=== PATIENT | male | born 1985 | race Caucasian/White ===

== ENCOUNTER 2017-05-15 12:45 | Emergency (ER) | payer MEDICAID ==
[~2017-05-15] VITALS: Ht 188 cm; Wt 118.0 kg
[2017-05-15 12:52] VITALS: BP 81/50; PULSE 84; RESP 13; TEMP 98.4; O2SAT 95
[2017-05-15 12:57] VITALS: BP 152/91; PULSE 72; RESP 18; O2SAT 98
[2017-05-15] MEDS ORDERED: SODIUM CHLORIDE 0.9% FLUSH 10 ML FLUSH IVF PRN (13:00)
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
[2017-05-15 13:04] VITALS: BP 144/98; PULSE 81; RESP 18; O2SAT 96
[2017-05-15] MEDS ORDERED: IOHEXOL 350 MG/ML 10 ML VIAL (for RAD DIAG) IV ONE (14:02)
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
== END 2017-05-15 14:56 | disposition home or self-care (01) ==
LOC: NEPD 12:45
DX: S20.211A Contusion of right front wall of thorax, initial encounter (principal); S00.11XA Contusion of right eyelid and periocular area, initial encounter; J45.909 Unspecified asthma, uncomplicated; V28.4XXA Motorcycle driver injured in noncollision transport accident in traffic accident, initial encounter
CPT/HCPCS: 71260; 74177; 99285; Q9967

== ENCOUNTER 2017-06-06 00:20 | Emergency (ER) | payer MEDICAID ==
[~2017-06-06] VITALS: Ht 188 cm; Wt 119.4 kg
[2017-06-06 00:26] VITALS: BP 153/97; PULSE 75; RESP 18; TEMP 97.8; O2SAT 99
[2017-06-06 00:36] VITALS: BP 153/97; PULSE 75; RESP 18; TEMP 97.8; O2SAT 99
[2017-06-06] MEDS ORDERED: AMOX875T PO (00:56)
[2017-06-06] MEDS ORDERED: IBUP800T23 PO (00:56)
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
[2017-06-06] MEDS ORDERED: LIDOCAINE HCL 1% 50 ML VIAL IM ONE (01:00)
[2017-06-06] MEDS ORDERED: KETOROLAC TROMETHAMINE 60 MG/2 ML (IM) VIAL IM ONE (01:00)
[2017-06-06 01:12] VITALS: BP 132/95
== END 2017-06-06 01:18 | disposition home or self-care (01) ==
LOC: PHED 00:20
DX: K04.7 Periapical abscess without sinus (principal)
CPT/HCPCS: 96372; 99284; J0696; J1885

== ENCOUNTER 2017-06-18 00:23 | Emergency (ER) | payer MEDICAID ==
[~2017-06-18 00:23] MED LIST: AMOX875T PO; IBUP800T23 PO
[2017-06-18 00:24] VITALS: BP 147/80; PULSE 124; RESP 18; TEMP 97.3; O2SAT 96
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
[2017-06-18] MEDS ORDERED: NORC5TAB PO (01:16)
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
== END 2017-06-18 01:54 | disposition home or self-care (01) ==
LOC: NEPC 00:23
DX: S92.355A Nondisplaced fracture of fifth metatarsal bone, left foot, initial encounter for closed fracture (principal); S93.402A Sprain of unspecified ligament of left ankle, initial encounter; V28.4XXA Motorcycle driver injured in noncollision transport accident in traffic accident, initial encounter; Y92.410 Unspecified street and highway as the place of occurrence of the external cause
CPT/HCPCS: 29515; 73610; 73630; 99283; E0113

== ENCOUNTER 2017-06-29 17:53 | Emergency (ER) | payer MEDICAID ==
[~2017-06-29] VITALS: Ht 188 cm; Wt 120.0 kg
[~2017-06-29 17:53] MED LIST changes: +NORC5TAB PO
[2017-06-29 17:56] VITALS: BP 162/94; PULSE 112; RESP 24; TEMP 98.7; O2SAT 98
[2017-06-29] MEDS ORDERED: IBUP800T23 PO (18:53)
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
[2017-06-29 19:05] VITALS: BP 142/82
== END 2017-06-29 19:17 | disposition home or self-care (01) ==
LOC: NEPK 17:53
DX: S92.352D Displaced fracture of fifth metatarsal bone, left foot, subsequent encounter for fracture with routine healing (principal); J45.909 Unspecified asthma, uncomplicated; V29.9XXD Motorcycle rider (driver) (passenger) injured in unspecified traffic accident, subsequent encounter
CPT/HCPCS: 99283; L3260